=== PATIENT | male | born 1945 | race Caucasian/White ===

== ENCOUNTER → 2019-12-20 | Outpatient (REF) | payer MEDICARE, OTHER ==
[2019-12-20 18:02] LABS: APPEARANCE, URINE CLEAR (CLEAR); BACTERIA, URINE AUTO NEGATIVE (NEGATIVE); BILIRUBIN, URINE AUTO NEGATIVE (NEGATIVE); BLOOD, URINE BLOOD 1+ (NEGATIVE); COLOR, URINE STRAW (YELLOW); GLUCOSE, URINE (UA) AUTO NEGATIVE (NEGATIVE); KETONE, URINE AUTO NEGATIVE (NEGATIVE); LEUKOCYTE ESTERASE, URINE AUTO NEGATIVE (NEGATIVE); NITRITE, URINE AUTO NEGATIVE (NEGATIVE); PROTEIN, URINE AUTO NEGATIVE (NEGATIVE); RBC, URINE AUTO 0 /HPF (0-3); SPECIFIC GRAVITY URINE AUTO 1.003 (1.002-1.035); SQUAMOUS EPITHELIAL CELL UR AU 0 /HPF (0-6); UROBILINOGEN, URINE AUTO 0.2 mg/dL (0.0-2.0); WBC, URINE AUTO 0 /HPF (0-3)
== END ==
LOC: M SMT 16:47
PROVIDERS: ATTEND Nurse Practitioner Women's Health
DX: R31.29 Other microscopic hematuria (principal)

== ENCOUNTER 2020-02-28 10:44 | Day surgery (SDC) | payer MEDICARE ==
[~2020-02-28] VITALS: Ht 177.8 cm; Wt 110.7 kg
[~2020-02-28 10:44] MED LIST: ASPI81CH33 PO; ATOR40TA75 PO; LISI2.5T2 PO; LR 1,000 ML IV ONE; METF-839 PO; METO1TAB32 PO; PANT40TA3 PO; ceFAZolin SOD 2 GM in IV 1 EA IV ONE
[2020-02-28] MEDS ORDERED: fentaNYL 100 MCG/2 ML INJECTION (J3010) As Ordered ONE (13:01)
[2020-02-28] MEDS ORDERED: propofoL 200 MG/20 ML VIAL As Ordered ONE (13:01)
[2020-02-28] MEDS ORDERED: ROCURONIUM BROMIDE 50 MG/5 ML VIAL As Ordered ONE (13:01)
[2020-02-28] MEDS ORDERED: ONDANSETRON 4MG/2ML VIAL As Ordered ONE (13:01)
[2020-02-28] MEDS ORDERED: dexameTHASONE 4 MG/ML 1ML VIAL (J1100 PER 1MG) As Ordered ONE (13:01)
[2020-02-28] MEDS ORDERED: LIDOCAINE 2% 100MG/5ML SDV (FOR ANES.) As Ordered ONE (13:01)
[2020-02-28] MEDS ORDERED: MIDAZOLAM INJ 2MG/2ML VIAL (J2250 PER 1MG) As Ordered ONE (13:01)
[2020-02-28] MEDS ORDERED: SUGAMMADEX SODIUM 500 MG/5 ML VIAL (BRIDION) As Ordered ONE (13:02)
[2020-02-28] MEDS ORDERED: ONDANSETRON 4MG/2ML VIAL IV PRN (13:45)
[2020-02-28] MEDS ORDERED: METOCLOPRAMIDE INJ 10MG/2ML VIAL (J2765 PER 1) IV PRN (13:45)
[2020-02-28] MEDS ORDERED: LR 1,000 ML IV SCH (13:45)
[2020-02-28] MEDS ORDERED: ACETAMINOPHEN TAB 650MG DOSE (2X325MG) PO PRN (13:45)
[2020-02-28] MEDS ORDERED: fentaNYL 100 MCG/2 ML INJECTION (J3010) IV PRN (13:45)
[2020-02-28 14:10] VITALS: BP 141/71
--- NOTE | 2020-03-06 14:25 | RO ---
DATE OF PROCEDURE: 02/28/2020 PREPROCEDURE DIAGNOSIS: Bladder tumors. POSTPROCEDURE DIAGNOSIS: Bladder tumors. PROCEDURE: Cystoscopy, transurethral resection of bladder tumor (greater than 5 cm), examination under anesthesia. SURGEON: Dr. Casey Dennison. RN STAFFING: None. ANESTHESIA: General. OPERATIVE INDICATION: This is a 74-year-old male who was found to have a large collection of bladder tumors on the posterior bladder wall on recent office cystoscopy. He was brought to the operating room today for treatment. DESCRIPTION OF PROCEDURE: The patient was brought to the operating room and general anesthesia induced. Prophylactic antibiotics were infused. He was placed in the dorsal lithotomy position and then a bimanual digital rectal examination under anesthesia was performed. This was notable for as moderately enlarged prostate with no palpable nodules or induration. The bladder was freely mobile and there were no palpable bladder masses. The patient was then prepped and draped in the usual sterile fashion. A resectoscope was inserted into the urethral meatus and advanced into the bladder using the visual obturator. The bladder was then thoroughly examined. The patient had enlarged collection of papillary tumors on the posterior bladder wall. No other tumors were seen in the bladder. All of these tumors were then resected using a bipolar loop. We made sure to resect into the muscle of the bladder for pathologic analysis. Once all the tumors were completely resected, they were removed from the bladder using a Urovac evacuator. Once all of the tumors were removed, we checked for hemostasis and cauterized the base of resection using the coagulation current. Once satisfied with hemostasis, the resectoscope was removed and an 18-La[place] Cates catheter was inserted into the bladder. The balloon was filled with 10 cc of sterile water and then the catheter was connected to gravity drainage. This marked the conclusion of the procedure. The patient was taken out of the dorsal lithotomy position, awakened from anesthesia and transported to the recovery room in stable condition. ESTIMATED BLOOD LOSS: 5 mL. COMPLICATIONS: None. SPECIMENS: Bladder tumors. PLAN: The patient will followup in the clinic in approximately 1 week for catheter removal and to discuss his pathology results. LES
== END 2020-02-28 15:15 | disposition home or self-care (01) ==
LOC: M SDC 10:44
PROVIDERS: ATTEND Urology
DX: C67.4 Malignant neoplasm of posterior wall of bladder (principal); I10 Essential (primary) hypertension; I25.2 Old myocardial infarction; Z98.61 Coronary angioplasty status; E78.49 Other hyperlipidemia; K21.9 Gastro-esophageal reflux disease without esophagitis; R73.03 Prediabetes; G47.30 Sleep apnea, unspecified; Z79.82 Long term (current) use of aspirin; Z79.84 Long term (current) use of oral hypoglycemic drugs; Z79.899 Other long term (current) drug therapy; E66.9 Obesity, unspecified
CPT/HCPCS: 52240; 88305; J0690; J1100; J2250; J2405; J3010

== ENCOUNTER → 2020-04-23 | Outpatient (REF) | payer MEDICARE ==
[~2020-04-23] MED LIST changes: -LR 1,000 ML IV ONE; -ceFAZolin SOD 2 GM in IV 1 EA IV ONE
[2020-04-23 19:47] LABS: APPEARANCE, URINE CLEAR (CLEAR); BACTERIA, URINE AUTO NEGATIVE (NEGATIVE); BILIRUBIN, URINE AUTO NEGATIVE (NEGATIVE); BLOOD, URINE BLOOD 1+ (NEGATIVE); COLOR, URINE YELLOW (YELLOW); GLUCOSE, URINE (UA) AUTO 3+ mg/dL (NEGATIVE); KETONE, URINE AUTO NEGATIVE (NEGATIVE); LEUKOCYTE ESTERASE, URINE AUTO 1+ (NEGATIVE); MUCUS, URINE SMALL (NEGATIVE); NITRITE, URINE AUTO NEGATIVE (NEGATIVE); PROTEIN, URINE AUTO NEGATIVE (NEGATIVE); RBC, URINE AUTO 7 /HPF (0-3); SPECIFIC GRAVITY URINE AUTO 1.017 (1.002-1.035); SQUAMOUS EPITHELIAL CELL UR AU 0 /HPF (0-6); UROBILINOGEN, URINE AUTO 0.2 mg/dL (0.0-2.0); WBC, URINE AUTO 27 /HPF (0-3)
== END ==
LOC: M SMT 17:23
PROVIDERS: ATTEND Nurse Practitioner Family
DX: C67.9 Malignant neoplasm of bladder, unspecified (principal)

== ENCOUNTER → 2020-07-08 | Outpatient (REF) | payer MEDICARE ==
[~2020-07-08] MED LIST changes: +PANT40TA29 PO; -PANT40TA3 PO
== END ==
LOC: M SMT 18:50
PROVIDERS: ATTEND Urology
DX: C67.9 Malignant neoplasm of bladder, unspecified (principal)

== ENCOUNTER → 2020-10-24 | Outpatient (REF) | payer MEDICARE | LOC: M SMT 13:26 | PROVIDERS: ATTEND Urology | DX: C67.9 Malignant neoplasm of bladder, unspecified (principal) ==

== ENCOUNTER → 2021-01-30 | Outpatient (REF) | payer MEDICARE | LOC: M SMT 12:52 | PROVIDERS: ATTEND Urology | DX: C67.9 Malignant neoplasm of bladder, unspecified (principal) ==

== ENCOUNTER → 2021-05-20 | Outpatient (REF) | payer MEDICARE ==
[~2021-05-20] MED LIST changes: -LISI2.5T2 PO; +LISI2.5T9 PO
== END ==
LOC: M SMT 12:44
PROVIDERS: ATTEND Urology
DX: C67.9 Malignant neoplasm of bladder, unspecified (principal)

== ENCOUNTER → 2021-09-15 | Outpatient (REF) | payer MEDICARE | LOC: M SMT 13:20 | PROVIDERS: ATTEND Urology | DX: C67.9 Malignant neoplasm of bladder, unspecified (principal) | CPT/HCPCS: 52000; 88108; G0463 ==

== ENCOUNTER → 2021-12-15 | Outpatient (REF) | payer MEDICARE | LOC: M SMT 17:04 | PROVIDERS: ATTEND Urology | DX: C67.9 Malignant neoplasm of bladder, unspecified (principal) ==

== ENCOUNTER → 2022-06-22 | Outpatient (REF) | payer MEDICARE | LOC: M SMT 15:18 | PROVIDERS: ATTEND Urology | DX: C67.9 Malignant neoplasm of bladder, unspecified (principal) ==

== ENCOUNTER → 2022-12-21 | Outpatient (REF) | payer MEDICARE | LOC: M SMT 17:14 | PROVIDERS: ATTEND Urology | DX: C67.9 Malignant neoplasm of bladder, unspecified (principal) ==

== ENCOUNTER → 2023-07-19 | Outpatient (REF) | payer MEDICARE | LOC: M SMT 17:06 | PROVIDERS: ATTEND Urology | DX: C67.9 Malignant neoplasm of bladder, unspecified (principal) ==

== ENCOUNTER → 2024-01-25 | Outpatient (REF) | payer MEDICARE | LOC: M SMT 17:20 | PROVIDERS: ATTEND Urology | DX: C67.9 Malignant neoplasm of bladder, unspecified (principal) ==

== ENCOUNTER → 2024-07-24 | Outpatient (REF) | payer MEDICARE | LOC: M SMT 17:31 | PROVIDERS: ATTEND Urology | DX: C67.9 Malignant neoplasm of bladder, unspecified (principal) ==

== ENCOUNTER → 2025-01-23 | Outpatient (REF) | payer MEDICARE | LOC: M SMT 12:55 | PROVIDERS: ATTEND Urology | DX: C67.9 Malignant neoplasm of bladder, unspecified (principal); R82.89 Other abnormal findings on cytological and histological examination of urine ==